=== PATIENT | male | born 1975 | race Caucasian/White ===

== ENCOUNTER 2024-01-27 13:00 | Emergency (ER) | payer BC, OTHER ==
[2024-01-27 13:32] LABS: BASOPHILS PERCENT AUTO 0.5 % (0.0-1.0); EOSINOPHILS PERCENT AUTO 2.4 % (1.0-3.0); HEMATOCRIT 44.6 % (40.0-54.0); LYMPHOCYTES PERCENT AUTO 20.4 % (20.5-50.1); MEAN CORPUSCULAR HEMOGLOBIN 28.8 pg (27.0-34.0); MEAN CORPUSCULAR HGB CONC 33.6 g/dL (33.0-35.0); MEAN CORPUSCULAR VOLUME 85.6 fL (80-100); MONOCYTES PERCENT AUTO 10.2 % (2-8); NEUTROPHILS PERCENT AUTO 66.5 % (42.2-75.2); PLATELET COUNT,PLT 311 10^3/uL (150-450); RED BLOOD CELL COUNT 5.21 10^6/uL (4.6-6.2); WHITE BLOOD CELL COUNT,WBC 8.2 10^3/uL (5.0-10.0)
[2024-01-27] MEDS: Sodium Chloride 0.9% 1,000 ML IV ONE (13:38)
[2024-01-27 13:53] LABS: APPEARANCE,URINE CLEAR (CLEAR); BILIRUBIN,URINE NEGATIVE (NEGATIVE); COLOR,URINE YELLOW (YELLOW); GLUCOSE,URINE NEGATIVE (NEGATIVE); KETONES,URINE NEGATIVE (NEGATIVE); LEUKOCYTE ESTERASE,URINE NEGATIVE (NEGATIVE); NITRITE,URINE NEGATIVE (NEGATIVE); OCCULT BLOOD,URINE TRACE-LYSED (NEGATIVE); PROTEIN,URINE NEGATIVE (NEGATIVE); UROBILINOGEN,URINE 0.2 mg/dL (0.2-1.0)
[2024-01-27 13:54] LABS: ALANINE AMINOTRANSFERASE,ALT 30 U/L (16-63); ALBUMIN 3.7 g/dL (3.4-5.0); ALKALINE PHOSPHATASE 71 U/L (46-116); ANION GAP 13.8 mEq/L (7-13); ASPARTATE AMNIOTRANSFERASE,AST 15 U/L (15-37); BILIRUBIN TOTAL 0.5 mg/dL (0.2-1.0); BLOOD UREA NITROGEN,BUN 17 mg/dL (7-18); BUN/CREATININE RATIO 16.2 (No establ ref range); CALCIUM 8.7 mg/dL (8.5-10.1); CARBON DIOXIDE,CO2 25 mmol/L (21-32); CHLORIDE,CL 105 mmol/L (98-107); CREATININE 1.05 mg/dL (0.70-1.30); GLUCOSE RANDOM 102 mg/dL (70-99); LIPASE 27 U/L (16-77); MAGNESIUM 2.1 mg/dL (1.8-2.4); POTASSIUM,K 3.8 mmol/L (3.5-5.1); PROTEIN TOTAL,TP 7.3 g/dL (6.4-8.2); SODIUM,NA 140 mmol/L (136-145)
[2024-01-27 13:57] LABS: ESTIMATED GFR 88 mL/min (>=60)
[2024-01-27 14:12] LABS: WBC,URINE 0-5 /HPF (0-5/HPF)
[2024-01-27 14:13] LABS: BACTERIA,URINE FEW /HPF (0-FEW/HPF); EPITHELIAL CELLS,URINE RARE /HPF (NOT SEEN); MUCUS,URINE FEW /LPF (NOT SEEN)
[2024-01-27] MEDS: GI Cocktail Oral Solution 30 ML PO ONE (14:21)
== END 2024-01-27 14:53 | disposition home or self-care (01) ==
LOC: DL.ED 13:00
DX: E86.0 Dehydration (principal); K21.9 Gastro-esophageal reflux disease without esophagitis
CPT/HCPCS: 36415; 70450; 71045; 80053; 81001; 83690; 83735; 84484; 85025; 93005; 96360; 99284; A9270; J7030; 93010